=== PATIENT | female | born 1965 | race Caucasian/White ===

== ENCOUNTER → 2017-03-26 | Outpatient (CLI) | payer BC ==
--- NOTE | 2017-03-26 09:01 | DIAGNOSTIC IMAGING REPORT ---
ABDOMINAL ULTRASOUND, RIGHT UPPER QUADRANT HISTORY: Right lower quadrant pain RT LOWER QUAD PAIN. COMPARISON: None. FINDINGS: Negative study of the right lower quadrant. Anterior abdominal wall is intact. No evidence for an abnormal appendix. IMPRESSION: Negative study Electronically signed by: Leandro Choi M.D. 03/26/2017 9:00 AM Dictated Date/Time: 03/26/2017 8:59 AM
--- NOTE | 2017-03-26 09:09 | DIAGNOSTIC IMAGING REPORT ---
PELVIC ULTRASOUND, TRANSABDOMINAL AND TRANSVAGINAL HISTORY: Right lower quadrant abdominal pain. COMPARISON: None. FINDINGS: Uterus: 6.6 x 4.7 x 3.7 cm. There are approximately 4 heterogeneous lesions within the uterus with the largest measuring 1.5 cm. These likely represent fibroids. There are few tiny nabothian cysts. Endometrial stripe: 6 mm in thickness. Right ovary: Normal in size and demonstrates normal color flow. Left ovary: Normal in size and demonstrates normal color flow. Miscellaneous:No pelvic free fluid. IMPRESSION: 1. Small uterine fibroids. 2. Normal bilateral ovaries. Electronically signed by: Jack Woodruff M.D. 03/26/2017 9:07 AM Dictated Date/Time: 03/26/2017 9:05 AM
== END | disposition home or self-care (01) ==
LOC: C.ULTR 07:51
PROVIDERS: ATTEND Family Medicine
DX: R10.31 Right lower quadrant pain (principal); D25.9 Leiomyoma of uterus, unspecified

== ENCOUNTER 2024-04-04 04:58 | Observation (INO) ==
--- NOTE | 2024-03-12 10:36 | PAT Medication Instructions ---
Medication Instructions Date of Service March 12, 2024 Home Medications citalopram 40 mg tablet 40 mg PO QAM celecoxib 100 mg capsule 100 mg PO BID cetirizine 10 mg capsule (Zyrtec) 10 mg PO QAM ASK your surgeon for instructions celecoxib 100 mg capsule 100 mg PO BID DO NOT take the morning of surgery cetirizine 10 mg capsule (Zyrtec) 10 mg PO QAM Take morning of surgery With a small sip of water, OTHERWISE NOTHING TO EAT OR DRINK AFTER MIDNIGHT: citalopram 40 mg tablet 40 mg PO QAM Other Notes If you have any questions please call us at [phone] or [phone] or [phone] or [phone]
--- NOTE | 2024-03-19 14:05 | Anesthesiology Consultation ---
Date of Service March 19, 2024 Assessment & Plan (1) Encounter for pre-operative examination: - Infectious disease screening: Per assessment on 03/19/24: No known infectious disease contacts or current infectious disease symptoms. No noted recent Covid positive test result. - Outpatient joint assessment: Pt currently scheduled for inpatient pathway. If surgeon requests review for outpatient joint pathway, patient is an acceptable candidate for outpatient joint program from anesthesia standpoint pending surgeon's office assessment that patient is motivated, has good support and completes Same Day Joint Program preop requirements. Chart Review Chart Review: Acceptable Risk for Surgery and Patient seen in Pre Admission Testing Teaching & Discussion Pre-Anesthesia Teaching/Discussion Notes: Instructed NPO after midnight before surgery,except medications with 15 cc of water. Medication instructions provided according to the PAT guidelines. History Surgery Operation Date: 04/04/24 10:00 Proposed Procedures p Right Anterior Total Hip Arthroplasty - Ricky Nur, Height/Weight Height: 5 ft 5 in Weight: 71.2 kg Allergies Allergy/AdvReac Type Severity Reaction Status Date / Time codeine Allergy Unknown Verified 03/17/24 16:23 Penicillins AdvReac Intermediate Unknown Verified 03/17/24 16:23 Medications Home Medications Medication Instructions Recorded Confirmed Last Taken citalopram 40 mg tablet 40 mg PO QAM 01/16/24 02/28/24 Unknown celecoxib 100 mg capsule 100 mg PO BID 02/28/24 02/28/24 Unknown cetirizine 10 mg capsule (Zyrtec) 10 mg PO QAM 02/28/24 02/28/24 Unknown Past Medical History Medical History Depression Environmental and seasonal allergies Osteoarthritis of right hip Exercise / Class Metabolic Activity II 4-5 Yardwork/Stairs/Walk up hill (one FS: No CP, no SOB) Past Surgical History Surgical History History of bilateral tubal ligation Hx of colonoscopy Hx of lumpectomy Unknown side, "benign" findings Hx of tonsillectomy Slow to wake up after anesthesia Slow to wake with tubal ligation, "felt scary" with anesthesia emergence Past Anesthesia History Other * Patient: Slow to wake with tubal ligation, "felt scary" with anesthesia emergence * Daughter: After , was told she had "movement in her toes faster than expected" History of PONV No Hx of PONV and Hx of Motion Sickness Social History Smoking Status: Never smoker Do You Dip or Chew Tobacco: No Hx Alcohol Use: No Hx Substance Use: No substance use type: crack/cocaine (very remote hx-"tried" once (cocaine) per records) Review of Systems Patient denies chest pain, shortness of breath, dyspnea on exertion, fever, chills, cough, wheezing, palpitations. Physical Exam Vital Signs BP 106/70 P 68 TEMP 98.1 SP02 95%RA RESP 18 Physical Full cervical extension range of motion. Full TMJ range of motion. TMD 3.5 finger breaths Mallampati Score 1 Dentition: missing left upper side, + several caps/crowns Lungs: clear throughout to auscultation Cardiac: regular rate and rhythm, no murmurs noted Spine: normal Carotid arteries: negative bruit Extremities: no LE edema Lab Results Anesthesia Preop Results Results Anesthesia Widget: WBC 3.91 K/ul (4.8-10.8) L 03/19/24 Hgb 12.1 g/dl (12.0-16.0) 03/19/24 Hct 36.5 % (37.0-47.0) L 03/19/24 Plt 337 K/uL (130-400) 03/19/24 Na 138 mmol/L (136-145) 03/19/24 K 3.9 mmol/L (3.5-5.1) 03/19/24 Cl 104 mmol/L (98-107) 03/19/24 CO2 29 mmol/L (21-32) 03/19/24 BUN 11 mg/dl (6-23) 03/19/24 Creat 0.66 mg/dl (0.6-1.2) 03/19/24 Glucose Level 78 mg/dl (70-99(Fasting)) 03/19/24 PT 9.8 Seconds (9.0-12.0) 03/19/24 PTT 27 Seconds (21-31) 03/19/24 INR 0.9 (0.9-1.1) 03/19/24 Blood Type O Negative 03/19/24 Antibody Screen NEGATIVE 03/19/24 Testing Electrocardiogram Date: 03/19/24 NSR at 68bpm. "Normal ECG" Chest X-Ray Date: 03/19/24 Findings: + NAD
[2024-04-04] MEDS: dexAMETHasone**PF** 10 MG/ML VIAL IV SCH (05:42)
[2024-04-04] MEDS: LR 500ML BOLUS, THEN 15ML/HR IV SCH (05:42)
[2024-04-04] MEDS: LR 60ML/HR IV SCH (05:42)
[2024-04-04] MEDS: GABAPENTIN 600 MG DOSE PO SCH (05:42)
[2024-04-04] MEDS: ACETAMINOPHEN 500 MG TAB PO SCH (05:43)
[2024-04-04] MEDS: FAMOTIDINE 20 MG TAB PO SCH (05:43)
[2024-04-04] MEDS ORDERED: BUPIVACAINE 0.5 % 5 MG/1 ML PF 10ML VIAL ONE (06:14)
[2024-04-04] MEDS ORDERED: ePHEDrine sulfate 50 MG/ML AMP IV PRN (06:31)
[2024-04-04] MEDS ORDERED: ATROPINE SULFATE 0.1 MG/ML 10ML SYR IV PRN (06:31)
[2024-04-04] MEDS ORDERED: DROPERIDOL 5 MG/2 ML VIAL IV PRN (06:31)
[2024-04-04] MEDS ORDERED: fentaNYL citrate PF 100 MCG/2 ML VIAL IV PRN (06:31)
--- NOTE | 2024-04-04 06:31 | History & Physical Bridge Note ---
Date of Service April 04, 2024 History & Physical Bridge Note I have examined the patient, reviewed the History & Physical and in the interval since the performance of the History & Physical I have noted the following changes of clinical significance: no changes noted
[2024-04-04] MEDS ORDERED: MIDAZOLAM HCL 1 MG/ML 2ML VIAL ONE (06:32)
[2024-04-04] MEDS ORDERED: PROPOFOL IV EMULSION 10 MG/ML 20 ML VIAL IV ONE ×2 (06:32→07:45)
[2024-04-04] MEDS ORDERED: fentaNYL citrate PF 100 MCG/2 ML VIAL ONE (06:32)
[2024-04-04] MEDS: TRANEXAMIC ACID 1,000 MG **IV Pre-op IV SCH (06:42)
[2024-04-04] MEDS: ceFAZolin 2000MG 2,000 MG/15 ML SYR IV SCH (06:57)
[2024-04-04] MEDS ORDERED: ePHEDrine sulfate 50 MG/5 ML SYR ONE (07:20)
[2024-04-04] MEDS: ORTHO JOINT ANESTHETIC ONE (07:38)
[2024-04-04] MEDS ORDERED: ONDANSETRON INJ 2 MG/ML 2 ML VIAL ONE (07:45)
[2024-04-04] MEDS: ROPIV 0.5% 246mg, Ketorolac 30mg, EPINEPHrine 0.5mg in NSS INFIL SCH (08:05)
[2024-04-04] MEDS: TRANEXAMIC ACID 1,000 MG **IV Intra-op IV SCH (08:08)
[2024-04-04] MEDS ORDERED: KETOROLAC 30 MG/ML VIAL ONE (08:18)
--- NOTE | 2024-04-04 08:19 | Operative Report ---
PG Post Operative Report Pre & Post Diagnosis Operation Date: 04/04/24 07:00 Pre-Op Diagnosis: Osteoarthritis of Right Hip Post-Op Diagnosis: Osteoarthritis of Right Hip I identified the patient and participated in the time-out.: Yes Procedure Operation Date: 04/04/24 07:00 Actual Procedures p Right Anterior Total Hip Arthroplasty(Right) - Ricky Nur DO Surgeon Ricky Nur DO Curatorial Specialist None Estimated Blood Loss 250 Findings Consistent with Post-Op Diagnosis Specimens Right femoral head Description of Procedure Implants used I used a Zimmer[employer]omet total hip arthroplasty system with a size 4 Taperloc stem, a 48 mm G7 cup with a 25mm screw, an E1 polyethylene liner, a 32 mm ceramic head with a -3 neck. Damari arrived at the hospital for the above procedure. She was seen in the preoperative holding area and the operative extremity was identified and signed. She was given a spinal anesthetic, a preoperative antibiotic, and TXA. She was then taken back to the operating room and laid on the table in the supine position. She was given basic sedation. The operative leg was secured to a Puristst leg positioner. The hip was then prepped and draped in sterile fashion. A timeout was done and the patient and the operative extremity was properly identified. An anterior approach was used. Dissection was taken down through the fascia and the tensor muscle belly was retracted laterally and the rectus was retracted medially. The circumflex vessels were identified and ligated. The capsule was then incised and tagged for later repair. The femoral neck was then cut and the femoral head was removed. The acetabulum was exposed. Time was spent doing a complete circumferential labral release. Sequential reaming of the acetabulum up to a size 47 reamer was done. Final reamings were done under fluoroscopy to ensure appropriate version. A Biomet 48 mm G7 cup was then impacted into place. A single 25 mm screw was placed. The E1 polyethylene liner was then snapped into place. Surrounding soft tissues were then injected with 100 cc of an orthopedic pain control cocktail. The proximal femur was then exposed. Sequential broaching up to a size 4 broach was done. Off that broach a size 32 head with a -3 neck was trialed. The hip was reduced and fluoroscopic images showed anatomic alignment of the implants in acceptable length. The broach was removed. The final size 4 Taperloc stem was then impacted into place. A ceramic 32 mm head with a -3 neck was then impacted onto the stem and the hip was reduced. Final fluoroscopic images showed anatomic alignment of the hip. The capsule was then closed with #1 Vicryl suture. A dilute betadyne lavage was then done for 3 minutes. The joint was then irrigated with normal saline solution. The fascia was closed with #1 PDS suture. Skin was closed with 2-0 Vicryl, karl, and a Silverlon dressing. She was then transferred to a hospital bed and taken to the post anesthesia care unit in stable condition. She tolerated the procedure well. I attest to the content of the Intraoperative Record and any orders documented therein. Any exceptions are noted below.
--- NOTE | 2024-04-04 09:06 | XRay Report ---
SINGLE VIEW PELVIS; SINGLE VIEW RIGHT HIP CLINICAL HISTORY: Postoperative examination. FINDINGS: An AP portable view of the hips and pelvis with a crosstable lateral portable view of the r ight hip are compared to study dated 01/16/2024. A bipolar right hip arthroplasty is in near-anatomic a lignment. A single cortical lag screw transfixes the acetabular cup. No acute fracture is identified. There are expected postoperative changes overlying the right hip including skin clips, subcutaneous gas, and soft tissue swelling. Moderate to severe arthritic change is noted in the left hip. There ar e numerous pelvic phleboliths. IMPRESSION: Expected postoperative findings status post right hip arthroplasty. No acute fracture is seen. ACT 112: Negative or not required by law. Electronically signed by: Uriel Coulter M.D. 04/04/2024 9:04 AM
--- NOTE | 2024-04-04 09:17 | Fluoroscopy Report ---
FL hip RT 1V CLINICAL HISTORY: RT ANTERIOR HIPright hip arthroplasty COMPARISON STUDY: Radiographs of same day FLUOROSCOPY TIME: 17.8 seconds FLUOROSCOPY IMAGES: 1 EXPOSURE DOSE: 1.9214 mGy FINDINGS: Right hip arthroplasty demonstrates satisfactory alignment. Expected postoperative soft tis fartun swelling with deep tissue air. IMPRESSION: Fluoroscopic assistance as above. ACT 112: Negative or not required by law. Electronically signed by: Krishna Wiggins M.D. 04/04/2024 9:16 AM
[2024-04-04] MEDS ORDERED: bisacodyL 10 MG SUPP PR PRN (09:47)
[2024-04-04] MEDS ORDERED: NALOXONE HCL 0.4 MG/1 ML VIAL/CARP IV PRN (09:47)
[2024-04-04] MEDS ORDERED: MAGNESIUM HYDROXIDE SUSP 30 ML UDC PO PRN (09:47)
[2024-04-04] MEDS ORDERED: HYDROmorphone INJ 0.5 MG/0.5 ML SYR IV PRN (09:47)
[2024-04-04] MEDS ORDERED: METOCLOPRAMIDE HCL INJ 5 MG/ML 2 ML VIAL IV PRN (09:47)
[2024-04-04] MEDS ORDERED: ONDANSETRON INJ 2 MG/ML 2 ML VIAL IV PRN (09:47)
[2024-04-04] MEDS ORDERED: oxyCODONE HCL IR 5 MG TAB (IMMEDIATE RELEASE) PO PRN (09:47)
[2024-04-04] MEDS: CELECOXIB 100 MG CAP PO SCH (10:15)
[2024-04-04] MEDS: ASPIRIN 81 MG ECTAB PO SCH (10:18)
[2024-04-04] MEDS: SODIUM CHLORIDE 0.9% 1,000 ML IV SCH (10:18)
[2024-04-04] MEDS: DOCUSATE SODIUM 100 MG CAP PO SCH (10:19)
[2024-04-04] MEDS: CITALOPRAM 40 MG TAB PO SCH (10:19)
[2024-04-04] MEDS: MULTIVITAMIN TAB PO SCH (10:19)
[2024-04-04] MEDS: KETOROLAC 30 MG/ML VIAL IV SCH (10:22)
--- NOTE | 2024-04-04 12:45 | Anesthesiology Progress Note ---
Date of Service April 04, 2024 Anesthesia Post Procedure Vital Signs Vital Signs: Temp Pulse Pulse Pulse Resp BP Pulse Ox 04/04/24 11:35 36.3 C L 85 16 106/65 97 04/04/24 10:39 36.3 C L 83 16 113/68 100 04/04/24 10:09 36.3 C L 76 16 110/62 94 04/04/24 09:35 36.4 C L 73 16 109/68 100 04/04/24 09:15 78 15 115/62 96 04/04/24 09:05 36.5 C 77 12 113/69 98 04/04/24 08:55 82 24 104/71 95 04/04/24 08:45 82 16 119/64 98 04/04/24 08:35 84 20 103/66 98 04/04/24 08:29 36.0 C L 85 18 112/65 98 04/04/24 05:31 36.8 C 67 18 117/72 98 O2 Del Method O2 Flow Rate 04/04/24 11:35 Room Air 04/04/24 10:39 Room Air 04/04/24 10:09 Room Air 04/04/24 09:35 Room Air 04/04/24 09:15 Room Air 0 04/04/24 09:05 Room Air 0 04/04/24 08:55 Room Air 0 04/04/24 08:45 Room Air 0 04/04/24 08:35 Room Air 0 04/04/24 08:29 Oxymask 2 04/04/24 05:31 Room Air Notes Mental Status: alert / awake / arousable Patient Amnestic to Procedure: Yes Nausea / Vomiting: adequately controlled Pain: adequately controlled Airway Patency, RR, SpO2: stable & adequate BP & HR: stable & adequate Hydration State: stable & adequate Neuraxial Anesthesia: was administered and sensory block is resolving Anesthetic Complications: no major complications apparent
[2024-04-04] MEDS: ceFAZolin 1000MG 1,000 MG/7.5 ML SYR IV SCH (13:37)
[2024-04-04] MEDS: SENNA 8.6 MG TAB PO SCH (19:43)
[2024-04-04] MEDS: ACETAMINOPHEN 500 MG TAB PO PRN (21:06)
[2024-04-05] MEDS: CETIRIZINE HCL 10 MG TABLET PO SCH (07:59)
[2024-04-05] MEDS: dexAMETHasone 4 MG TAB PO SCH (08:00)
--- NOTE | 2024-04-05 08:53 | Discharge Summary ---
Date of Service April 05, 2024 Principal Diagnosis Same as "Discharge Diagnosis" noted below under Discharge Instructions. Discharge Exam On physical examination of the right hip, the dressing is clean and dry. Her legs out full extension. She is active dorsiflexion plantarflexion of her right ankle.. Discharge Data Procedures Performed Operation Date: 04/04/24 07:00 Actual Procedures p Right Anterior Total Hip Arthroplasty(Right) - Ricky Nur DO Ordered Studies 04/04/24 07:00 FL hip RT 1V Routine Hospital Course (1) Status post right hip replacement: On April 04, 2024 Damari arrived at [facility] and underwent a right hip replacement without complication. She had a spinal anesthetic. Postoperatively she was started on aspirin for DVT prophylaxis and transferred to the general orthopedic floors. Her hospital course was uneventful. On postop day #1, her vital signs were stable and her pain was well-controlled. She was able to participate well with physical therapy doing ambulation and ran ge of motion exercises. She was then discharged home. She will follow-up with orthopedics in 2 weeks.. PG Care Time/CCT Total # of Minutes Spent Total Time Spent with Patient: Total time spent is greater than 50% in coordination of care (as documented) at patient's floor/unit and/or counseling patient: Discharge Plan Discharge Items Patient Disposition: Home - Self-Care Reason For Visit: Right Hip Degenerative Joint Disease Discharge Diagnosis: Right hip replacement Activity: Per Instructions section Non-emergency contact: Surgeon Call non-emergency contact if: your wound has increased redness and your wound has increased drainage Follow-up/Referrals: Henna Cortes DO [Primary Care Provider] - Diet: Regular Addtl Attending Provider Instructions: Activity and Therapy Recommendations: * If you are using [facility] then therapy will be provided at your home until they feel you have accomplished all of your goals. * If you are using [facility] then Physical Therapy will be provided until they feel you are ready to start Outpatient Physical Therapy. * If you are not using home therapy then Outpatient Physical Therapy should start about 3-5 days from your day of surgery. Therapy will last about 6-10 weeks * You were shown a series of exercises in the hospital. Do these exercises three times each day including the exercises you were shown in physical therapy. * Get up and walk several times each day.~ For the first four weeks, try not to stand or walk for more than one hour at a time. If you do stand or walk for more than one hour, you will not hurt anything, but your leg will likely swell.~~ * As you feel comfortable, you may change from the walker or crutches to a cane and~then to independent walking. Medications: * Narcotic You will likely be sent home from the hospital with a prescription for the narcotic pain medication that worked best throughout your stay. * Cefadroxil -take the antibiotic twice a day for 10 days to help prevent infection. * Aspirin Most patients will be required to take Aspirin 81mg twice a day for 6 weeks after surgery. This is obtained [id number] and a prescription is not necessary. * Other medications may be prescribed for specific circumstances. If you have any questions, please call the office at . * Resume previous home medications unless otherwise instructed TEDs/Elastic Stockings: The white elastic stockings help limit swelling and prevent blood clots from forming in your legs. The more you wear them, the more they work. Wear them for six weeks. Dressing Care: Leave the Silverlon dressing in place for 7 days. After 7 days you may remove the dressing. If the incision is not draining then you may leave the karl open to air. If there is a little bit of drainage or if the karl are getting stuck on your clothing then cover the incision with a dry dressing. The karl will be removed at your 2 week follow-up appointment. Showering: You may shower with the Silverlon dressing in place. Do not let the shower spray hit the dressing directly. Pat the Silverlon dressing dry. If the dressing becomes wet underneath, then simply remove the dressing. Keep the incision dry until you are 7 days out from the day of surgery. After 7 days you may remove the Silverlon dressing and shower with the karl exposed. Let soapy water run over the karl and pat them dry. Do not scrub or soak the incision. Things To Watch For: * Drainage from the incision site that occurs more than one week after your surgery. * Increased redness at the incision site. * Fever above 102 degrees Fahrenheit. * Unusual chest pain or shortness of breath. * Call [facility] at with any of the above problems Follow-Up Visit: Follow-up with Dr. Nur's PA (Ricky Stock) 2-3 weeks after your day of surgery. He will remove your karl and answer any questions. If you have any additional questions or concerns, Dr Nur is usually in the office at the same time and will be available An appointment was probably scheduled when you signed-up for surgery in the office. If you have any questions call Office Instructions: More detailed instructions as well as Frequently Asked Questions were provided in a folder by our office when you signed-up for surgery. Please review these instructions when you get home. If you have any further questions or concerns, please feel free to call the office at [phone] Pending Studies at Discharge: No Stand-Alone Forms: My [facility] Guerrilla RF, Smoking Cessation Medications and DC Order Prescriptions: New oxycodone 5 mg Tablet 5 mg PO Q4H PRN (Reason: pain) Qty: 30 0RF cefadroxil 500 mg capsule 500 mg PO BID 10 Days Qty: 20 0RF ondansetron 4 mg tablet,disintegrating 4 mg PO Q8H PRN (Reason: nausea and vomiting) Qty: 10 0RF aspirin 81 mg Tablet,Delayed Release (Dr/Ec) 81 mg PO BID 42 Days Qty: 84 0RF Continued citalopram [Celexa] 40 mg tablet 40 mg PO QAM celecoxib [Celebrex] 100 mg capsule 100 mg PO BID Zyrtec 10 mg Capsule 10 mg PO QAM Discharge Orders: Discharge Order (Routine); Ordered 04/05/24 Ordered By: Ricky Nur Admission Data Admit Date/Time: 04/04/24 08:22 Attending Provider: Ricky Nur Admit Provider: Ricky Nur Primary Care Provider: Henna Cortes
--- NOTE | 2024-04-05 08:53 | Orthopedic Progress Note ---
Date of Service April 05, 2024 Assessment & Plan (1) Status post right hip replacement: Overall she is doing very well. She is not having much pain in the right hip. She will be seen by physical therapy today for ambulation and range of motion exercises. She is on aspirin for DVT prophylaxis. She can be discharged home later today. She will follow-up orthopedics in 2 weeks. Subjective Damari was seen and examined at bedside this morning. Overall she is doing very well. She is not having much pain in the right hip. She has been up and ambulating to the bathroom. She is no complaints.. Review of Systems All systems reviewed & are unremarkable except as noted in HPI & below. Physical Exam On physical examination of the right hip, the dressing is clean and dry. Her legs out full extension. She is active dorsiflexion plantarflexion of her right ankle.. Results & Data Results & Data Laboratory Results . Diagnostic Findings Postoperative x-rays of the right hip show the prosthesis to be in anatomic alignment without any evidence of fracture, his cage, or loosening.. PG Care Time/CCT Total # of Minutes Spent Total Time Spent with Patient: Total time spent is greater than 50% in coordination of care (as documented) at patient's floor/unit and/or counseling patient: Coding Level of Care Code 25687 Post Operative Follow-Up Diagnoses Status post right hip replacement Z96.641
== END 2024-04-05 11:23 | disposition home or self-care (01) ==
LOC: ASU 04:58 → 3E 04:58

== ENCOUNTER 2024-11-17 05:38 | Inpatient (IN) ==
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
--- OUTSIDE RECORDS SUMMARY | 2024-11-17 05:46 | External Medical Summary | Continuity of Care Document ---
Author Name Unknown Organization [address] Address [address] [place] [address] [phone] Care Team Providers Care Credit Compliance Officer Name Role Phone Henna Cortes Primary Care Physician [phone] Encounter [facility] [id number] Date(s): 10/13/24 - 10/13/[address] [place] [address], [facility] [address] [place] [address] [phone] Encounter Diagnosis Sinus infection(Discharge Diagnosis) - 10/13/24 [...] 3, PRN: as needed for pain, Pharmacy: [id number] Start Date: 02/05/24 Stop Date: 01/30/25 Status: Ordered cetirizine 10 mg oral tablet Start: 09/10/12 9:41:00 AM EST, 1 tab, PO, Daily, PRN: as needed for allergy symptoms Start Date: 09/10/12 Status: Ordered citalopram 40 mg oral tablet Start: 02/05/24 10:54:00 AM EDT, 1 tab, PO, Daily, Disp# 90 tab, Refills: 3, [id number] Start Date: 02/05/24 Status: Ordered doxycycline hyclate 100 mg oral capsule Start: 10/13/24 4:20:00 PM EST, 1 cap, PO, bid, Disp# 14 cap, Refills: 0, Pharmacy: [id number] Start Date: 10/13/24 Stop Date: 10/20/24 Status: Ordered Mental Status 10/13/24 Barriers to Learning one year None evide nt Mandatory Health Literacy Documentation Yes Health Literacy Communication Barriers N ever Primary Language Venezuelan Problem List Condition Confirmation Course Effective Dates [...] right breast excisional biopsy Completed Tonsillectomy Completed [place] tooth 4 Completed 1EGD irregular Z line [...] Med Member Role: Primary Care Provider Address: [address] [place] [id number] [place] Care Team Related Persons Name: TRAVIS REYES Name: TRAVIS REYES
[2024-11-17 06:34] LABS: Basophils # (auto) 0.02 K/uL (0.00-0.20); Basophils % (auto) 0.7 %; Eosinophils # (auto) 0.05 K/uL (0.00-0.50); Eosinophils % (auto) 1.8 %; Hematocrit (blood only) 37.5 % (37.0-47.0); Hemoglobin 12.3 g/dl (12.0-16.0); Immature Granulocytes # (auto) 0.01 K/uL (0.01-0.20); Immature Granulocytes % (auto) 0.4 %; Lymphocytes # (auto) 0.47 K/uL (1.20-3.40); Mean Corpuscular Hemoglobin 29.1 pg (25.0-34.0); Mean Corpuscular Hgb Conc 32.8 g/dL (32.0-36.0); Mean Corpuscular Volume 88.7 fL (80.0-100.0); Mean Platelet Volume 9.1 fL (9.4-12.4); Monocytes # (auto) 0.29 K/uL (0.11-0.59); Monocytes % (auto) 10.5 %; Neutrophils # (auto) 1.92 K/uL (1.40-6.50); Neutrophils % (auto) 69.6 %; Platelet Count 245 K/uL (130-400); RDW Coefficient of Variation 13.3 % (11.5-14.5); RDW Standard Deviation 42.9 fL (36.4-46.3); Red Blood Count 4.23 M/uL (4.20-5.40); White Blood Count 2.76 K/ul (4.8-10.8)
[2024-11-17 06:53] LABS: Alanine Aminotransferase 18 U/L (7-52); Albumin Globulin Ratio 1.4 (0.9-2); Albumin Level 4.3 gm/dl (3.4-5.0); Alkaline Phosphatase 92 U/L (34-104); Anion Gap 6 (3-11); Aspartate Aminotransferase 25 U/L (13-39); BUN Creatinine Ratio 11.9 (10-20); Bilirubin,Total 0.4 mg/dl (0.2-1.0); Blood Urea Nitrogen 8 mg/dl (6-23); Calcium 9.4 mg/dl (8.6-10.3); Carbon Dioxide 32 mmol/L (21-32); Chloride 100 mmol/L (98-107); Creatinine Clr Calc Pharmacy 93.1 ml/min; Glucose 108 mg/dl (70-99(Fasting)); Lipase 13 U/L (11-82); Sodium 138 mmol/L (136-145); Total Protein 7.3 gm/dl (6.0-8.3)
[2024-11-17 06:59] LABS: Troponin I High Sensitivity < 2.3 pg/ml (0-14)
--- NOTE | 2024-11-17 07:01 | Emergency Department Note ---
Impression & Plan Hypoxia, Upper respiratory infection, Influenza A, Dyspnea ED Provider Note ED Provider Note NAME: DHAVAL REYES AGE:58 SEX: Female : 1965 ARRIVES VIA: Private vehicle INFORMANT: Patient ED PROVIDER(s): Wilma Castro DO CHIEF COMPLAINT: Cough, congestion, sore throat HPI: This is a 58-year-old female who presents emergency department due to concern for cough, nasal congestion and rhinorrhea, as well as sore throat which began yesterday. Patient believes she likely acquired an illness from her grandson whom she helps to care for her does attend daycare. She states she was ill a few weeks ago after he had RSV. She denies body aches, abdominal pain, diarrhea, leg swelling, rash or sores. She does admit to chest tightness with coughing. She states the cough is minimally productive of clear sputum. She states she also has headache and ear pain which she attributes to being sick as well. PAST MEDICAL HISTORY:See Below PAST SURGICAL HISTORY:See Below FAMILY HISTORY:See Below SOCIAL HISTORY:See Below HOME MEDICATIONS:See Below ALLERGIES:See Below VITALS:See Below PHYSICAL EXAMINATION: GENERAL: alert, well appearing, well nourished, no distress, non-toxic EYE EXAM: normal conjunctiva, PERRL and EOM's grossly intact EARS: TM's clear b/l without erythema or effusion OROPHARYNX: no exudate, no erythema, lips, buccal mucosa, and tongue normal and mucous membranes are moist NECK: supple, no nuchal rigidity, no adenopathy, non-tender LUNGS: Decreased bilaterally to auscultation. Normal chest wall mechanics, no w/r/r HEART: no murmurs, S1 normal and S2 normal ABDOMEN: abdomen soft, non-tender, normo-active bowel sounds, no masses, no rebound or guarding. BACK: Back is symmetrical on inspection and there is no deformity SKIN: no rashes, petechiae, orbruising UPPER EXTREMITIES: upper extremities are grossly normal. FROM, nml pulses b/l. LOWER EXTREMITIES: No pitting edema. FROM, nml pulses b/l. NEURO EXAM: Normal sensorium, cranial nerves II-XII grossly intact, normal speech, no facial droop,nogross weakness of arms, no gross weakness of legs. Gross sensation intact. No ataxia. Vital Signs: reviewed and remarkable Differential Diagnosis: Viral syndrome, bronchitis, pneumonia, deep space infection, PE, pericarditis/myocarditis, ACS, pleural effusion, CHF, as well as others were considered MEDICAL DECISION MAKING: This is a 58-year-old female who presents emergency department due to concern for shortness of breath and frequent bouts of coughing with accompanying nasal congestion and sore throat. She was afebrile and hemodynamically stable here. Labs drawn and sent, IV established, EKG and chest x-ray performed at bedside interpreted by me and patient monitored on telemetry. Patient started on IV fluids and given Tessalon Perle as well as albuterol MDI. Patient was noted to desat by nursing staff when falling asleep. She was placed on oxygen via nasal cannula with improvement. She was given Magic mouthwash to help with throat, Decadron, and Tamiflu once it was noted that her nasal swab was positive for influenza A. Patient did not desat during ambulatory trial, but did desat again when falling asleep. Patient with no other prior pulmonary history. Other vital signs remained stable. No obvious pulmonary edema, pleural effusion, or pneumonia on chest x-ray. Patient's other labs reassuring. Due to concern for coming hypoxia in the setting of acute influenza A, case discussed with the hospitalist team for additional evaluation and management. Consultation(s): 1000: Discussed with CHENTE, [facility] hospitalist team, for additional evaluation and management. ER Treatment Provided: See below Diagnostics Interpreted By Me: -ECG: Normal sinus rhythm at 82, normal axis, normal intervals, no acute ST/T wave changes -Cardiac Monitoring: An order was placed for continuous cardiac monitoring. The monitor shows a rate of 88 with normal sinus rhythm. -Laboratory studies: As stated above and show below. -Imaging studies: X-ray Chest: A single view study of the chest was reviewed and was negative for cardiomegaly, focal infiltrate, effusion, pulmonary edema, or wide mediastinum. Triage Nursing Note Reviewed Prior/Outside Records Reviewed Past Med/Surg History Problem List Dyspnea (Acute) Hypoxia (Acute) Influenza A (Acute) Upper respiratory infection (Acute) Status post right hip replacement (~03/2024) Medical History Osteoarthritis of right hip Depression Environmental and seasonal allergies Surgical History Slow to wake up after anesthesia Slow to wake with tubal ligation, "felt scary" with anesthesia emergence Hx of lumpectomy Unknown side, "benign" findings History of bilateral tubal ligation Hx of colonoscopy Hx of tonsillectomy Social History Smoking Status: Never smoker Second Hand Exposure: Yes (hx as child); Do You Dip or Chew Tobacco: No; Hx Alcohol Use: No Hx Substance Use: No Preferred Language: Algerian Communication Ability: Effective [employer] Labourer Required: No Beliefs That Will Affect Care: None Current Living Situation: Spouse and Family Feels Safe at Home: Yes Assistive Devices: Walker Allergies Allergies Allergy/AdvReac Type Severity Reaction Status Date / Time codeine Allergy Unknown Verified 11/17/24 09:55 Penicillins AdvReac Intermediate Unknown Verified 11/17/24 09:55 Home Meds Home Medications Medication Instructions Recorded Confirmed citalopram 40 mg tablet (Celexa) 40 mg PO QAM 01/16/24 11/17/24 celecoxib 100 mg capsule (Celebrex) 100 mg PO DAILY 02/28/24 11/17/24 cetirizine 10 mg capsule (Zyrtec) 10 mg PO QAM 02/28/24 11/17/24 Results & Data (ED) Vital Signs Vital Signs - 24 hr 11/17/24 05:42 11/17/24 06:09 11/17/24 07:44 Temperature 36.8 C Temperature Source Temporal Artery Scan Pulse Rate 88 84 Pulse Rate [Right Finger] 78 Pulse Rhythm [Right Finger] Regular Pulse Strength Normal Pulse Strength [Right Finger] Normal Respiratory Rate 18 18 Respiratory Effort / Characteristics Non-Labored Spontaneous Non-Labored Spontaneous Respiratory Depth Normal Normal Respiratory Pattern Blood Pressure 135/59 L Blood Pressure [Right Arm] 113/65 Blood Pressure Mean 84 Blood Pressure Mean [Right Arm] 81 Blood Pressure Position [Right Arm] Sitting Pulse Oximetry 97 96 Oxygen Delivery Method Room Air Room Air Oxygen Flow Rate Sepsis Recent Fever Within 48 Hours No Sepsis New/Unexplained Change in Mental Status No Sepsis Action Taken by Nursing No Action Required 11/17/24 08:30 11/17/24 08:30 11/17/24 08:32 Temperature Temperature Source Pulse Rate Pulse Rate [Right Finger] 82 Pulse Rhythm [Right Finger] Regular Pulse Strength Pulse Strength [Right Finger] Normal Respiratory Rate 18 Respiratory Effort / Characteristics Non-Labored Spontaneous Respiratory Depth Normal Respiratory Pattern Regular Blood Pressure Blood Pressure [Right Arm] 101/61 Blood Pressure Mean Blood Pressure Mean [Right Arm] 74 Blood Pressure Position [Right Arm] Sitting Pulse Oximetry 98 85 L 97 Oxygen Delivery Method Nasal Cannula Room Air Nasal Cannula Oxygen Flow Rate 2 2 Sepsis Recent Fever Within 48 Hours Sepsis New/Unexplained Change in Mental Status Sepsis Action Taken by Nursing Laboratory Data 11/17/24 06:05 11/17/24 06:05 Lab Results 11/17/24 Range/Units 06:05 WBC 2.76 L (4.8-10.8) K/ul RBC 4.23 (4.20-5.40) M/uL Hgb 12.3 (12.0-16.0) g/dl Hct 37.5 (37.0-47.0) % MCV 88.7 (80.0-100.0) fL MCH 29.1 (25.0-34.0) pg MCHC 32.8 (32.0-36.0) g/dL RDW Std Deviation 42.9 (36.4-46.3) fL RDW Coeff of Kerline 13.3 (11.5-14.5) % Plt Count 245 (130-400) K/uL MPV 9.1 L (9.4-12.4) fL Immature Gran % (Auto) 0.4 % Neut % (Auto) 69.6 % Lymph % (Auto) 17.0 % Mills % (Auto) 10.5 % Eos % (Auto) 1.8 % Baso % (Auto) 0.7 % Neut # (Auto) 1.92 (1.40-6.50) K/uL Lymph # (Auto) 0.47 L (1.20-3.40) K/uL Mills # (Auto) 0.29 (0.11-0.59) K/uL Eos # (Auto) 0.05 (0.00-0.50) K/uL Baso # (Auto) 0.02 (0.00-0.20) K/uL Immature Gran # (Auto) 0.01 (0.01-0.20) K/uL Sodium 138 (136-145) mmol/L Potassium 4.0 (3.5-5.1) mmol/L Chloride 100 (98-107) mmol/L Carbon Dioxide 32 (21-32) mmol/L Anion Gap 6 (3-11) BUN 8 (6-23) mg/dl Creatinine 0.67 (0.6-1.2) mg/dl Est Cr Clr Drug Dosing 93.1 ml/min eGFR 100.00 BUN/Creatinine Ratio 11.9 (10-20) Glucose 108 H (70-99(Fasting)) mg/dl Calcium 9.4 (8.6-10.3) mg/dl Total Bilirubin 0.4 (0.2-1.0) mg/dl AST 25 (13-39) U/L ALT 18 (7-52) U/L Alkaline Phosphatase 92 (34-104) U/L Troponin I High Sens < 2.3 (0-14) pg/ml Total Protein 7.3 (6.0-8.3) gm/dl Albumin 4.3 (3.4-5.0) gm/dl Globulin 3.0 (2.5-4.0) gm/dl Albumin/Globulin Ratio 1.4 (0.9-2) Lipase 13 (11-82) U/L Nasal Influ A H1 2008 PCR DETECTED A (NotDetected) Adenovirus (PCR) Not Detected (NotDetected) B. pertussis DNA (PCR) Not Detected (NotDetected) B.parapertussis DNA PCR Not Detected (NotDetected) C. pneumoniae DNA (PCR) Not Detected (NotDetected) Coronavirus OC43 (PCR) Not Detected (NotDetected) Coronavirus HKU1 (PCR) Not Detected (NotDetected) Coronavirus 229E (PCR) Not Detected (NotDetected) SARS-CoV-2 (PCR) Not Detected (NotDetected) Coronavirus NL63 (PCR) Not Detected (NotDetected) Human Metapneumovir PCR Not Detected (NotDetected) Influenza Type B (PCR) Not Detected (NotDetected) M. pneumoniae (PCR) Not Detected (NotDetected) Parainfluenza 1 (PCR) Not Detected (NotDetected) Parainfluenza 2 (PCR) Not Detected (NotDetected) Parainfluenza 3 (PCR) Not Detected (NotDetected) Parainfluenza 4 (PCR) Not Detected (NotDetected) RSV (PCR) Not Detected (NotDetected) Entero/Rhino (PCR) Not Detected (NotDetected) Administered Medications Albuterol (Albut/Ipratrop 3mg/0.5mg Neb 3 Ml Vial) 3 ml INH Q6R ROWAN Stop: 12/17/24 13:19 Last Admin: 11/17/24 13:41 Dose: 3 ml Documented By: DA Benzonatate (Benzonatate 100 Mg Capsule) 100 mg PO TID [facility] Stop: 12/17/24 13:59 Last Admin: 11/17/24 13:52 Dose: 100 mg Documented By: COOKIE Citalopram Hydrobromide (Citalopram 40 Mg Tab) 40 mg PO QAM [facility] Stop: 12/17/24 13:59 Last Admin: 11/17/24 13:57 Dose: 40 mg Documented By: COOKIE Discontinued Medications Acetaminophen (Acetaminophen 325 Mg Tab) 650 mg PO NOW STA Stop: 11/17/24 10:31 Last Admin: 11/17/24 10:42 Dose: 650 mg Documented By: [facility] Albuterol (Albuterol Hfa 8 Gm Inhaler) 2 puffs INH NOW ONE Stop: 11/17/24 06:55 Last Admin: 11/17/24 07:07 Dose: 2 puffs Documented By: [facility] Benzonatate (Benzonatate 100 Mg Capsule) 100 mg PO NOW ONE Stop: 11/17/24 06:55 Last Admin: 11/17/24 07:06 Dose: 100 mg Documented By: [facility] Cetirizine HCl (Cetirizine Hcl 10 Mg Tablet) 10 mg PO NOW ONE Stop: 11/17/24 10:31 Last Admin: 11/17/24 10:42 Dose: 10 mg Documented By: [facility] Dexamethasone Sodium Phosphate (DexamethasonePf 10 Mg/Ml Vial) 10 mg IV NOW ONE Stop: 11/17/24 06:55 Last Admin: 11/17/24 07:04 Dose: 10 mg Documented By: [facility] Sodium Chloride (Nss) 1,000 mls @ 999 mls/hr IV .Q1H1M ONE Stop: 11/17/24 10:05 Last Infusion: 11/17/24 10:17 Dose: Infused Documented By: Admin: 11/17/24 09:16 Dose: 999 mls/hr Documented By: [facility] Multi-Ingredient Mouthwash/Gargle (First - Mouthwash Blm 5 Ml Udp) 5 ml PO ONE ONE Stop: 11/17/24 06:55 Last Admin: 11/17/24 07:34 Dose: 5 ml Documented By: [facility] Oseltamivir Phosphate (Oseltamivir Phosphate 75 Mg Cap) 75 mg PO NOW STA; Protocol Stop: 11/17/24 08:31 Last Admin: 11/17/24 09:16 Dose: 75 mg Documented By: [facility] Imaging Data Radiologist's Impression: Chest X-Ray 11/17/24 05:51 EXAM: XR chest 1V portable CLINICAL HISTORY: Chest pain, nonspecific. TECHNIQUE: X-ray image of the chest obtained in AP projection. COMPARISON: X-ray dated 03/19/2024. FINDINGS: Pulmonary Parenchyma: Few nodular opacities in apex of right lung, likely vascular. No evidence of consolidation or collapse. No evidence of pleural effusion or pleural thickening. Heart and Mediastinum: Heart size and shape are normal. No mediastinal widening or masses. No hilar or mediastinal lymphadenopathy. Bony Thorax: Spondylotic changes in thoracic spine. Bony thorax appears intact without fractures or deformities. Soft Tissues: Soft tissues overlying the chest wall are unremarkable. IMPRESSION: 1. No acute abnormality. 2. No changes since last study. Electronically signed by Nya Lazcano 11-17-2024 07:34 AM Discharge Plan Visit Data Chief Complaint: Cough Stated Complaint: COUGH, SOB ED Provider: Wilma Castro Discharge Problem: Hypoxia, Upper respiratory infection, Influenza A, Dyspnea Patient Disposition: Admitted As Inpatient Discharge Instructions Interventions: ED Discharge Assessment Last Done: 11/17/24 14:35
[2024-11-17] MEDS: dexAMETHasone**PF** 10 MG/ML VIAL IV ONE (07:04)
[2024-11-17] MEDS: BENZONATATE 100 MG CAPSULE PO ONE (07:06)
[2024-11-17] MEDS: ALBUTEROL HFA 8 GM INHALER INH ONE (07:07)
[2024-11-17 07:17] LABS: Adenovirus PCR Not Detected (NotDetected); Bordetella parapertussis PCR Not Detected (NotDetected); Bordetella pertussis PCR Not Detected (NotDetected); Chlamydia pneumoniae PCR Not Detected (NotDetected); Coronavirus 229E PCR Not Detected (NotDetected); Coronavirus CoV-2 (COVID19)PCR Not Detected (NotDetected); Coronavirus HKU1 PCR Not Detected (NotDetected); Coronavirus NL63 PCR Not Detected (NotDetected); Coronavirus OC43PCR Not Detected (NotDetected); Human Metapneumovirus PCR Not Detected (NotDetected); Influenza A (H1 2009) PCR DETECTED (NotDetected); Influenza B PCR Not Detected (NotDetected); Mycoplasma pneumoniae PCR Not Detected (NotDetected); Parainfluenza Virus 1 PCR Not Detected (NotDetected); Parainfluenza Virus 2 PCR Not Detected (NotDetected); Parainfluenza Virus 3 PCR Not Detected (NotDetected); Parainfluenza Virus 4 PCR Not Detected (NotDetected); Respiratory Syncytial VirusPCR Not Detected (NotDetected); Rhinovirus/Enterovirus PCR Not Detected (NotDetected)
[2024-11-17] MEDS: FIRST - Mouthwash BLM 5 ML UDP PO ONE (07:34)
--- NOTE | 2024-11-17 07:35 | XRay Report ---
EXAM: XR chest 1V portable CLINICAL HISTORY: Chest pain, nonspecific. TECHNIQUE: X-ray image of the chest obtained in AP projection. COMPARISON: X-ray dated 03/19/2024. FINDINGS: Pulmonary Parenchyma: Few nodular opacities in apex of right lung, likely vascular. No evidence of consolidation or collapse. No evidence of pleural effusion or pleural thickening. Heart and Mediastinum: Heart size and shape are normal. No mediastinal widening or masses. No hilar or mediastinal lymphadenopathy. Bony Thorax: Spondylotic changes in thoracic spine. Bony thorax appears intact without fractures or deformities. Soft Tissues: Soft tissues overlying the chest wall are unremarkable. IMPRESSION: 1. No acute abnormality. 2. No changes since last study. Electronically signed by Nya Lazcano 11-17-2024 07:34 AM
--- NOTE | 2024-11-17 08:35 | Electrocardiogram Report ---
Test Reason : Blood Pressure : */* mmHG Vent. Rate : 82 BPM Atrial Rate : 82 BPM P-R Int : 138 ms QRS Dur : 78 ms QT Int : 384 ms P-R-T Axes : 31 3 33 degrees QTcB Int : 448 ms Normal sinus rhythm Normal ECG When compared with ECG of 19-Mar-2024 14:36, No significant change was found Confirmed by Higinio Mattson ([id number]) on 11/17/2024 8:34:52 AM Referred By: Confirmed By: Higinio Mattson
[2024-11-17] MEDS: SODIUM CHLORIDE 0.9% 1,000 ML IV ONE (09:16)
[2024-11-17] MEDS: OSELTAMIVIR PHOSPHATE 75 MG CAP PO STA (09:16)
--- NOTE | 2024-11-17 09:40 | History & Physical Report ---
Date of Service November 17, 2024 Assessment & Plan (1) Influenza A: (2) Hypoxia: Plan Damari is a pleasant 58-year-old female with PMH of right hip replacement, seasonal allergies, and depression. She presented on 11/17 for SOB, dyspnea, and cough. Her symptoms began yesterday. She first developed a hard, dry cough, but then she had 2 episodes where she had difficulty breathing after coughing. This SOB occurred at rest, and she reports she had never experienced anything like this before. She says it felt like she could not catch her breath. She also had 2 episodes where she vomited fluid due to coughing, both last night and this morning. No supplemental oxygen at baseline or CPAP at night. No PMH of DVT/PE. #Influenza A CXR on arrival without acute findings Influenza A (+) on arrival Droplet isolation precautions Supportive care Tamiflu 75 mg p.o. BID Benzonatate as needed for cough DuoNeb 3 mL Q6R as needed for wheezing # Acute hypoxic SpO2 dropped to 85% on RA in the ED Patient is not on supple oxygen at baseline Titrate supplemental oxygen as needed to maintain SpO2 >94% Continuous pulse oximetry #Leukopenia WBC count 2.76 on arrival Only prior WBC was also leukopenic in March 2024 Noted; outpatient follow-up #History of right hip arthroplasty On 04/04/2024 Patient reports she was instructed to take aspirin 81 mg for 6 months postop, but reports she is still taking it Will d/c aspirin given concomitant use of Celebrex Chronic stable conditions: #Depression-citalopram #Allergies-Zyrtec #Body aches-hold Celebrex; acetaminophen as needed Disposition: Admit to [facility] Full code Regular diet VTE PPx: Lovenox 40 mg SQ q24h History of Present Illness Chief Complaint: Cough, SOB Primary Care Provider: Henna Cortes DO Damari is a pleasant 58-year-old female with PMH of right hip replacement, seasonal allergies, and depression. She presented on 11/17 for SOB, dyspnea, and cough. Her symptoms began yesterday. She first developed a dry cough, but then she had 2 episodes where she had difficulty breathing after coughing fits. This SOB occurred at rest, and she reports she had never experienced anything like this before where she "could not catch her breath". She also had 2 episodes where she vomited fluid due to coughing, both last night and this morning. No supplemental oxygen at baseline or CPAP at night. No PMH of DVT/PE. Patient reports that she does not have a pulse oximeter at home. No history of asthma or COPD. Patient did not take her regular morning medicine today. She says she takes aspirin 81 mg daily, as she was instructed to take it after her hip replacement in March 2024 (for 6 months), but she is still taking it. She takes celecoxib once daily for general body aches. In regard to her penicillin allergy, she is unsure what happens when she takes penicillin; might have had a rash as a kid; no prior history of throat closure or anaphylaxis. Patient did not get her flu shot this year. She has 2 grandchildren (9 months and 20 months) who have both been sick intermittently over the winter with RSV, bronchitis, and other viral illnesses. Patient denies smoking, tobacco use, recent alcohol use. Patient's SpO2 is 97% on 2L NC; vitals otherwise stable at time of admission. ED course: NSS 1000 mL IV Dexamethasone 10 mg IV Benzonatate 100 mg p.o. Albuterol 2 puffs Tamiflu 75 mg p.o. Magic mouthwash 5 mL ROS: Patient endorses chills, body aches, sore throat, headache behind the temples, lower rib pain bilaterally, and two episodes of vomiting (phlegm/fluid). Patient denies fever, sweating, dizziness, lightheadedness, chest pain, chest palpitations, pleuritic CP, SOB at present, hemoptysis, abdominal pain, nausea, diarrhea, changes in urinary/bowel habits, burning with urination, blood in the urine or stool, or redness or swelling in the legs. Allergies Allergy/AdvReac Type Severity Reaction Status Date / Time codeine Allergy Unknown Verified 11/17/24 09:55 Penicillins AdvReac Intermediate Unknown Verified 11/17/24 09:55 Home Medications Medication Instructions Recorded Confirmed Type citalopram 40 mg tablet (Celexa) 40 mg PO QAM 01/16/24 11/17/24 History celecoxib 100 mg capsule (Celebrex) 100 mg PO DAILY 02/28/24 11/17/24 History cetirizine 10 mg capsule (Zyrtec) 10 mg PO QAM 02/28/24 11/17/24 History Past Med/Surg History Problem List Hypoxia Influenza A Upper respiratory infection (Acute) Status post right hip replacement (~03/2024) Medical History Osteoarthritis of right hip Depression Environmental and seasonal allergies Surgical History Slow to wake up after anesthesia Slow to wake with tubal ligation, "felt scary" with anesthesia emergence Hx of lumpectomy Unknown side, "benign" findings History of bilateral tubal ligation Hx of colonoscopy Hx of tonsillectomy Social History Smoking Status: Never smoker Second Hand Exposure: Yes (hx as child); Do You Dip or Chew Tobacco: No; Hx Alcohol Use: No Hx Substance Use: No Preferred Language: Australian Communication Ability: Effective Junior Brand Manager Required: No Beliefs That Will Affect Care: None Current Living Situation: Spouse and Family Feels Safe at Home: Yes Assistive Devices: Walker Review of Systems Review of Systems: See HPI above Physical Exam Physical Exam: General: no acute distress; pleasant affect; at bedside; non-toxic appearing; cooperative; SpO2 98% on 2L NC HEENT: normocephalic, atraumatic; no scleral icterus; PERRLA w/ EOMs intact; oral mucosa is coral pink; oropharynx is not erythematous; vision and hearing grossly intact Neck: supple; no lymphadenopathy; trachea midline Skin: warm, dry without signs of tenting; no cyanosis; no rashes, bruising, lesions, or erythema noted CV: chest wall NTP; RRR; S1/S2 normal; no murmurs/rubs/gallops; pulses intact and symmetric at radial, DP, and PT Lungs: no acute respiratory distress; symmetrical chest wall expansion; clear breath sounds across all lung rob w/o adventitious sounds; no wheezing ABD: Soft, NTP; BS present; no rebound/guarding; no distention MSK: no tics or fasciculations; no edema noted in the LEs b/l, nonerythematous Neuro: A&Ox3; normal mood and affect; fluent speech; no focal deficits; sensation intact and symmetric in the lower extremities bilaterally Results & Data Results & Data Vital Signs (Past 12 Hours) Vital Signs Temp Pulse Pulse Resp BP BP Pulse Ox 11/17/24 08:32 97 11/17/24 08:30 85 L 11/17/24 08:30 82 18 101/61 98 11/17/24 07:44 78 18 113/65 96 11/17/24 06:09 84 11/17/24 05:42 36.8 C 88 18 135/59 L 97 O2 Del Method O2 Flow Rate 11/17/24 08:32 Nasal Cannula 2 11/17/24 08:30 Room Air 11/17/24 08:30 Nasal Cannula 2 11/17/24 07:44 Room Air 11/17/24 06:09 11/17/24 05:42 Room Air Laboratory Results Abnormal lab results 11/17/24 Range/Units 06:05 WBC 2.76 L (4.8-10.8) K/ul MPV 9.1 L (9.4-12.4) fL Lymph # (Auto) 0.47 L (1.20-3.40) K/uL Glucose 108 H (70-99(Fasting)) mg/dl Nasal Influ A H1 2008 PCR DETECTED A (NotDetected) Diagnostic Findings Chest X-Ray 11/17/24 05:51 EXAM: XR chest 1V portable CLINICAL HISTORY: Chest pain, nonspecific. TECHNIQUE: X-ray image of the chest obtained in AP projection. COMPARISON: X-ray dated 03/19/2024. FINDINGS: Pulmonary Parenchyma: Few nodular opacities in apex of right lung, likely vascular. No evidence of consolidation or collapse. No evidence of pleural effusion or pleural thickening. Heart and Mediastinum: Heart size and shape are normal. No mediastinal widening or masses. No hilar or mediastinal lymphadenopathy. Bony Thorax: Spondylotic changes in thoracic spine. Bony thorax appears intact without fractures or deformities. Soft Tissues: Soft tissues overlying the chest wall are unremarkable. IMPRESSION: 1. No acute abnormality. 2. No changes since last study. Electronically signed by Nya Lazcano 11-17-2024 07:34 AM ECG Additional Comments: ECG revealed NSR at 82 bpm; QTc 448 Code Status & VTE Plan Code Status Full code VTE Prophylaxis Plan VTE Prophylaxis will be ordered: Yes Supervising Physician Co-Signing Physician Notes In General: In general very pleasant 58-year-old female who is alert and oriented x 3 at the time of my examination. She is accompanied by her at the time of my exam. She is resting comfortably on 2 L of oxygen nasal cannula and she is 99%. HEENT: Normocephalic atraumatic pupils are equal round and reactive to light bilaterally. No scleral icterus no conjunctival injection external auditory canals are patent septum is in the midline nose is without discharge oral mucosa is pink and moist without lesion. NECK: Supple no rigidity no lymphadenopathy no thyromegaly no carotid bruits no JVD no masses. HEART: Regular rate and rhythm I do not appreciate any ectopy or rub. No murmur. LUNGS: Lungs are diminished. There appears to be some faint expiratory wheezing bilaterally. Very difficult exam given the quality of the isolation stethoscope currently in use. No rales or rhonchi appreciated on this exam. ABDOMEN: Soft nontender, no rebound, no peritoneal signs, positive bowel sounds, no appreciable organomegaly. EXTREMITIES: Intact, no peripheral cyanosis, clubbing or edema. Strength is 5 out of 5 in extremities x4. NEUROLOGICAL: Cranial nerves II through XII are grossly intact with no focal deficit elicited upon examination. No tremor. Assessment/plan: As described above. Please refer to orders for further planning. We do expect the patient probably we discharged in the next 48 hours pending the patient's oxygen requirements and hypoxemia and clinical course. PG Care Time/CCT Total # of Minutes Spent Total Time Spent with Patient: Total time spent is greater than 50% in coordination of care (as documented) at patient's floor/unit and/or counseling patient: [place] [address] INT INP/OBS CARE 2/55MIN Patient Type New Medical Decision Making Moderate Complexity Diagnoses Influenza A J10.1 Hypoxia R09.02
[2024-11-17] MEDS: ACETAMINOPHEN 325 MG TAB PO STA (10:42)
[2024-11-17] MEDS: CETIRIZINE HCL 10 MG TABLET PO ONE (10:42)
[2024-11-17] MEDS ORDERED: ACETAMINOPHEN 325 MG TAB PO PRN (13:20)
[2024-11-17] MEDS ORDERED: MELATONIN 3 MG TAB PO PRN (13:20)
[2024-11-17] MEDS ORDERED: ONDANSETRON INJ 2 MG/ML 2 ML VIAL IV PRN (13:20)
[2024-11-17] MEDS: ALBUT/IPRATROP 3MG/0.5MG NEB 3 ML VIAL INH SCH (13:41)
[2024-11-17] MEDS: BENZONATATE 100 MG CAPSULE PO SCH (13:52)
[2024-11-17] MEDS: CITALOPRAM 40 MG TAB PO SCH (13:57)
[2024-11-17] MEDS: OSELTAMIVIR PHOSPHATE 75 MG CAP PO SCH (20:11)
[2024-11-17] MEDS: ENOXAPARIN INJ 40 MG/0.4 ML SYR SQ SCH (20:11)
[2024-11-18 06:16] LABS: Hematocrit (blood only) 34.6 % (37.0-47.0); Hemoglobin 11.7 g/dl (12.0-16.0); Mean Corpuscular Hemoglobin 29.5 pg (25.0-34.0); Mean Corpuscular Hgb Conc 33.8 g/dL (32.0-36.0); Mean Corpuscular Volume 87.2 fL (80.0-100.0); Mean Platelet Volume 9.2 fL (9.4-12.4); Platelet Count 247 K/uL (130-400); Red Blood Count 3.97 M/uL (4.20-5.40); White Blood Count 3.15 K/ul (4.8-10.8)
[2024-11-18] MEDS: CETIRIZINE HCL 10 MG TABLET PO SCH (08:34)
--- NOTE | 2024-11-18 10:32 | Hospitalist Progress Note ---
Date of Service November 18, 2024 Assessment & Plan (1) Influenza A: (2) Hypoxia: Plan Damari is a pleasant 58-year-old female with PMH of right hip replacement, seasonal allergies, and depression. She presented on 11/17 for SOB, dyspnea, and cough. Her symptoms began yesterday. She first developed a hard, dry cough, but then she had 2 episodes where she had difficulty breathing after coughing. This SOB occurred at rest, and she reports she had never experienced anything l todd this before. She says it felt like she could not catch her breath. She also had 2 episodes where she vomited fluid due to coughing, both last night and this morning. No supplemental oxygen at baseline or CPAP at night. No PMH of DVT/PE. #Influenza A CXR on arrival without acute findings Influenza A (+) on arrival Droplet isolation precautions Incentive spirometry Methylpred 40mg daily Tamiflu 75 mg p.o. BID Benzonatate as needed for cough DuoNeb 3 mL Q6R as needed for wheezing # Hypoxia Continue supplemental oxygen goal =/>92% Not on supple oxygen at baseline Continuous pulse oximetry #Leukopenia WBC count 2.76 on arrival Only prior WBC was also leukopenic in March 2024 Noted; outpatient follow-up #History of right hip arthroplasty On 04/04/2024 Patient reports she was instructed to take aspirin 81 mg for 6 months postop, but reports she is still taking it Will d/c aspirin given concomitant use of Celebrex Chronic stable conditions: #Depression-citalopram #Allergies-Zyrtec #Body aches-hold Celebrex; acetaminophen as needed Disposition: Admit to [facility] Full code Regular diet VTE PPx: Lovenox 40 mg SQ q24h Admission and Anticipated Discharge Date Admission Date: November 17, 2024 Supervising Physician Co-Signing Physician Notes Attending attestation Pt seen and examined in concert with Dr. Moon. In agreement with the documented findings as noted in the resident documentation with any exceptions or additions as noted here. Resting in bed feeling respiratory status is improving but still SOB with waking. Two flutter valves but no incentive spirometer. On examination, S1/S2 nl RRR no MCG. breath sounds decreased at bilateral bases. Abd NT/ND BS+ve WBC 3.15, Hgb 11.7 Influenza A with noctural/sleep hypoxia - continue tamiflu, symptomatic management. Recommend nocturnal pulse O2 for ?O2 therapy, O2 by protocol. Else see resident documentation as noted. Subjective Patient seen and evaluated at bedside this morning. No acute events overnight. Continues to desaturate to 80s at rest. BP soft. Pt with cough. No other acute complaints today Review of Systems Review of Systems: reviewed, per HPI Physical Exam Physical Exam: Constitutional: well-appearing, no acute distress HEENT: NCAT, no conjunctival injection CV: regular rhythm, no murmur appreciated, extremities well-perfused, no LE edema Resp: Coarse breath sounds, no increased work of breathing GI: non distended MSK: no gross deformities appreciated Skin: warm, dry, no rash appreciated Neuro: alert, oriented, no focal neurologic deficit appreciated Results & Data Results & Data Vital Signs (Past 12 Hours) Vital Signs Temp Pulse Resp BP Pulse Ox O2 Del Method O2 Flow Rate 11/18/24 07:55 37.1 C 82 16 98/52 L 97 Nasal Cannula 2 11/18/24 07:40 71 16 99 Nasal Cannula 2 Resident Activity Tracking Resident Involvement: Resident Care Provided Care Provided: Adult Hospital Medicine
[2024-11-18] MEDS ORDERED: methylPREDNISolone 125 MG/2 ML VIAL IV SCH (10:45)
[2024-11-18] MEDS: methylPREDNISolone 40 MG in SYRINGE 0 ML IV SCH (12:01)
[2024-11-18] MEDS ORDERED: ALBUT/IPRATROP 3MG/0.5MG NEB 3 ML VIAL INH PRN (13:27)
[2024-11-19 07:49] VITALS: RESP 16; TEMP 98.4; O2SAT 95
[2024-11-19 09:27] VITALS: BP 106/70; PULSE 80
--- NOTE | 2024-11-19 11:04 | Discharge Summary ---
Date of Service November 19, 2024 Admission HPI Per Admitting Provider Damari is a pleasant 58-year-old female with PMH of right hip replacement, seasonal allergies, and depression. She presented on 11/17 for SOB, dyspnea, and cough. Her symptoms began yesterday. She first developed a dry cough, but then she had 2 episodes where she had difficulty breathing after coughing fits. This SOB occurred at rest, and she reports she had never experienced anything like this before where she "could not catch her breath". She also had 2 episodes where she vomited fluid due to coughing, both last night and this morning. No supplemental oxygen at baseline or CPAP at night. No PMH of DVT/PE. Patient reports that she does not have a pulse oximeter at home. No history of asthma or COPD. Patient did not take her regular morning medicine today. She says she takes aspirin 81 mg daily, as she was instructed to take it after her hip replacement in March 2024 (for 6 months), but she is still taking it. She takes celecoxib once daily for general body aches. In regard to her penicillin allergy, she is unsure what happens when she takes penicillin; might have had a rash as a kid; no prior history of throat closure or anaphylaxis. Patient did not get her flu shot this year. She has 2 grandchildren (9 months and 20 months) who have both been sick intermittently over the winter with RSV, bronchitis, and other viral illnesses. Patient denies smoking, tobacco use, recent alcohol use. Patient's SpO2 is 97% on 2L NC; vitals otherwise stable at time of admission. ED course: NSS 1000 mL IV Dexamethasone 10 mg IV Benzonatate 100 mg p.o. Albuterol 2 puffs Tamiflu 75 mg p.o. Magic mouthwash 5 mL ROS: Patient endorses chills, body aches, sore throat, headache behind the temples, lower rib pain bilaterally, and two episodes of vomiting (phlegm/fluid). Patient denies fever, sweating, dizziness, lightheadedness, chest pain, chest palpitations, pleuritic CP, SOB at present, hemoptysis, abdominal pain, nausea, diarrhea, changes in urinary/bowel habits, burning with urination, blood in the urine or stool, or redness or swelling in the legs. Admission Exam Per Admitting Provider General: no acute distress; pleasant affect; at bedside; non-toxic appearing; cooperative; SpO2 98% on 2L NC HEENT: normocephalic, atraumatic; no scleral icterus; PERRLA w/ EOMs intact; oral mucosa is coral pink; oropharynx is not erythematous; vision and hearing grossly intact Neck: supple; no lymphadenopathy; trachea midline Skin: warm, dry without signs of tenting; no cyanosis; no rashes, bruising, l esions, or erythema noted CV: chest wall NTP; RRR; S1/S2 normal; no murmurs/rubs/gallops; pulses intact and symmetric at radial, DP, and PT Lungs: no acute respiratory distress; symmetrical chest wall expansion; clear breath sounds across all lung rob w/o adventitious sounds; no wheezing ABD: Soft, NTP; BS present; no rebound/guarding; no distention MSK: no tics or fasciculations; no edema noted in the LEs b/l, nonerythematous Neuro: A&Ox3; normal mood and affect; fluent speech; no focal deficits; sensation intact and symmetric in the lower extremities bilaterally Principal Diagnosis Influenza A Discharge Exam Constitutional: well-appearing, no acute distress HEENT: NCAT, no conjunctival injection CV: regular rhythm, no murmur appreciated, extremities well-perfused, no LE edema Resp: Coarse breath sounds, no increased work of breathing GI: non distended MSK: no gross deformities appreciated Skin: warm, dry, no rash appreciated Neuro: alert, oriented, no focal neurologic deficit appreciated Discharge Data Allergies Allergy/AdvReac Type Severity Reaction Status Date / Time codeine Allergy Unknown Verified 11/17/24 09:55 Penicillins AdvReac Intermediate Unknown Verified 11/17/24 09:55 Consultations 11/17/24 10:16 ED Decision to Admit Stat Hospital Course (1) Influenza A: (2) Hypoxia: Liyah Wetzel is a pleasant 58-year-old female with PMH of right hip replacement, seasonal allergies, and depression. She presented on 11/17 for SOB, dyspnea, and cough. Her symptoms began yesterday. She first developed a hard, dry cough, but then she had 2 episodes where she had difficulty breathing after coughing. This SOB occurred at rest, and she reports she had never experienced anything like this before. She says it felt like she could not catch her breath. She also had 2 episodes where she vomited fluid due to coughing, both last night and this morning. No supplemental oxygen at baseline or CPAP at night. No PMH of DVT/PE. #Influenza A CXR on arrival without acute findings Influenza A (+) on arrival Droplet isolation precautions Incentive spirometry Methylpred 40mg daily - prednisone burst 50mg daily x 3 days on discharge Tamiflu 75 mg p.o. BID - continue on discharge for total of 5 days Benzonatate as needed for cough DuoNeb 3 mL Q6R as needed for wheezing # Hypoxia Continue supplemental oxygen goal =/>92% Not on supple oxygen at baseline Continuous pulse oximetry Overnight pulse ox prior to discharge without concerning desaturation events on RA #Leukopenia WBC count 2.76 on arrival Only prior WBC was also leukopenic in March 2024 Noted; outpatient follow-up #History of right hip arthroplasty On 04/04/2024 Patient reports she was instructed to take aspirin 81 mg for 6 months postop, but reports she is still taking it Will d/c aspirin given concomitant use of Celebrex Chronic stable conditions: #Depression-citalopram #Allergies-Zyrtec #Body aches- restart Celebrex; acetaminophen as needed Total Time Total Time Spent Total Time Spent (In Minutes): I spent 25 minutes in [id number] time with the patient, chart review, and documentation. FJB Discharge Plan Discharge Items Patient Disposition: Home - Self-Care Reason For Visit: INFLUENZA A, HYPOXIA Discharge Diagnosis: Influenza A Activity: Resume your previous activity Activity Comment: as tolerated Non-emergency contact: Primary Care Provider Call non-emergency contact if: you have any medication questions, your symptoms worsen, you have a fever and your temperature is above 101.5 Follow-up/Referrals: Henna Cortes DO [Primary Care Provider] - Diet: Regular Addtl Attending Provider Instructions: You were admitted to the hospital for Influenza A. You were treated with supplemental oxygen, steroids, and Tamiflu. You will continue steroids and Tamiflu on discharge for a total of 5 days. A discharge summary will be sent to your primary care physician to ensure continuity of care. Please bring this discharge summary with you to your next office appointment so that your provider can review it at that time. Follow-up appointments: Make a follow-up appointment with your PCP within the next week. It is very important that you follow up with them shortly after discharge from the [facility]. Keep all your follow-up appointments as already scheduled. If you cannot make an appointment, notify your provider. Medications: Your medication list has been reviewed and reconciled upon discharge to ensure accuracy and continuity of care. An updated list of all your medications is included with your hospital discharge paperwork. Please review this list closely, and make note of any changes. We sent a new medication called Tamiflu (oseltamivir) to your pharmacy. Take Tamiflu (75mg) one tablet twice daily 3 more days. Take your first dose of this tonight. We sent a new medication called prednisone to your pharmacy. Take prednisone (50mg) one tablet daily for 3 more days. Take your first dose of this tomorrow. If you have any issues filling these prescriptions, please call [phone] and ask to leave a message for Dr. Norman Moon. Take your medications as instructed; do not skip a dose of your medicines. Make sure all of your doctors know every medicine you are taking (including [id number] medicines, vitamins, and supplements). Call your primary care provider before taking any new medicines (including [id number] medicines, vitamins, and supplements), because some of these may interact with your current medications, or may make your symptoms worse. Tell your primary care provider if you cannot afford your medications. CONTACT YOUR PRIMARY CARE PROVIDER if you experience any of the following: Increased shortness of breath Fever Difficulty following your treatment plan, or difficulty taking medications CALL 911 OR GO TO THE EMERGENCY DEPARTMENT if you experience any of the following: Sudden, severe abdominal pain or nausea/vomiting Severe chest pain, or chest pain that radiates (moves) to your jaw or arm Sudden, severe shortness of breath or difficulty breathing Thank you for allowing us to participate in your care. Pending Studies at Discharge: No Stand-Alone Forms: My [facility] Medications and DC Order Prescriptions: New oseltamivir [Tamiflu] 75 mg capsule 75 mg PO BID Qty: 7 0RF prednisone 50 mg tablet 50 mg PO DAILY 3 Days Qty: 3 0RF Continued citalopram [Celexa] 40 mg tablet 40 mg PO QAM celecoxib [Celebrex] 100 mg capsule 100 mg PO DAILY Zyrtec 10 mg Capsule 10 mg PO QAM Discharge Orders: Discharge Order (Routine); Ordered 11/19/24 Ordered By: Norman Moon Admission Data Admit Date/Time: 11/17/24 10:11 Attending Provider: Mauro Fairchild Admit Provider: Julio Parada Primary Care Provider: Henna Cortes Other Providers: Julio Parada Supervising Physician Co-Signing Physician Notes I also saw the patient and confirmed lugo portions of the clinical history and the physical examination. I agree with the impression and plan as noted in the resident discharge. Upon exam this morning, the patient is feeling much better. She is anticipating discharge. She has remained afebrile. She continues to have an intermittent cough but she can speak in full and complete sentences without pause. Vital signs show 95% on room air. Blood pressure 106/70, pulse 80. Respiratory 16. influenza A with hypoxia, resolved Discussed signs and symptoms which to monitor, Specifically worsening dyspnea and or worsening of fever. Complete course of Tamiflu Continue oral steroids (there seems to be an underlying history of reactive airway disease, thus the theoretical benefit of steroids in this case) Resident Activity Tracking Resident Involvement: Resident Care Provided Care Provided: Adult Hospital Medicine
== END 2024-11-19 12:24 | disposition home or self-care (01) | DRG 195 ==
LOC: ED 05:38 → EDINP 10:11 → SUATTDRO 10:11 → 3E 14:35